=== PATIENT | male | born 1965 | race American Indian/Alaskan Native ===

== ENCOUNTER 2019-10-23 21:05 | Emergency (ER) | payer SELFPAY ==
[2019-10-23 21:09] VITALS: BP 148/101
--- NOTE | 2019-10-23 21:27 | Emergency Department Report ---
ED ENT HPI - General Chief complaint: Sore Throat Stated complaint: SORE THROAT, ELEVATED BLOOD PRESSURE Time Seen by Provider: 10/23/19 21:20 Source: patient Mode of arrival: Ambulatory Limitations: No Limitations - History of Present Illness Initial comments: This is a 53-year-old male nontoxic well in appearance with no signs of distress presents to the ED with complaint of sore throat, fever, chills, and body aches. Patient denies any drooling or hoarseness. Patient denies any other symptoms. Denies any headache, nausea, vomiting, chest pain or SOB. Denies any other complaints. MD complaint: sore throat -: days(s) Location: throat Severity: mild Severity scale (0 -10): 8 Quality: aching Consistency: constant Improves with: none Worsens with: swallowing Associated Symptoms: pain with swallowing, sore throat. denies: fever, cough, gum swelling, toothache, tinnitus, hearing loss, discharge from ear, rhinorrhea - Related Data Previous Rx's Medication Instructions Recorded Last Taken Type Amoxicillin/K Clav Tab [Augmentin 1 tab PO Q12HR #20 tab 10/23/19 Unknown Rx 875 mg] Ibuprofen [Motrin] 800 mg PO Q8HR PRN #20 tablet 10/23/19 Unknown Rx Allergies Allergy/AdvReac Type Severity Reaction Status Date / Time No Known Allergies Allergy Verified 10/23/19 21:09 ED Dental HPI - General Chief complaint: Sore Throat Stated complaint: SORE THROAT, ELEVATED BLOOD PRESSURE Time Seen by Provider: 10/23/19 21:20 Source: patient Mode of arrival: Ambulatory Limitations: No Limitations - Related Data Previous Rx's Medication Instructions Recorded Last Taken Type Amoxicillin/K Clav Tab [Augmentin 1 tab PO Q12HR #20 tab 10/23/19 Unknown Rx 875 mg] Ibuprofen [Motrin] 800 mg PO Q8HR PRN #20 tablet 10/23/19 Unknown Rx Allergies Allergy/AdvReac Type Severity Reaction Status Date / Time No Known Allergies Allergy Verified 10/23/19 21:09 ED Review of Systems ROS: Stated complaint: SORE THROAT, ELEVATED BLOOD PRESSURE Other details as noted in HPI Constitutional: chills, fever Eyes: denies: eye pain, eye discharge, vision change ENT: throat pain. denies: ear pain Respiratory: denies: cough, shortness of breath, wheezing Cardiovascular: denies: chest pain, palpitations Endocrine: no symptoms reported Gastrointestinal: denies: abdominal pain, nausea, diarrhea Genitourinary: denies: urgency, dysuria Musculoskeletal: denies: back pain, joint swelling, arthralgia Skin: denies: rash, lesions Neurological: denies: headache, weakness, paresthesias Psychiatric: denies: anxiety, depression Hematological/Lymphatic: denies: easy bleeding, easy bruising ED Past Medical Hx - Past Medical History Previous Medical History?: No - Surgical History Past Surgical History?: No - Medications Home Medications: Home Medications Medication Instructions Recorded Confirmed Last Taken Type Amoxicillin/K Clav Tab [Augmentin 1 tab PO Q12HR #20 tab 10/23/19 Unknown Rx 875 mg] Ibuprofen [Motrin] 800 mg PO Q8HR PRN #20 tablet 10/23/19 Unknown Rx ED Physical Exam - General Limitations: No Limitations General appearance: alert, in no apparent distress - Head Head exam: Present: atraumatic, normocephalic - Eye Eye exam: Present: normal appearance - Expanded ENT Exam Expanded Ear exam: Present: normal external inspection Mouth exam: Present: normal external inspection, tongue normal. Absent: drooling, trismus, muffled voice Teeth exam: Present: normal inspection Throat exam: Positive: tonsillar erythema, tonsillomegaly (2+ bilateral), other (uvual midline). Negative: tonsillar exudate, R peritonsillar mass, L peritonsillar mass - Neck Neck exam: Present: normal inspection, full ROM. Absent: tenderness, meningismus, lymphadenopathy - Respiratory Respiratory exam: Present: normal lung sounds bilaterally. Absent: respiratory distress, wheezes, rales, rhonchi, stridor, chest wall tenderness, accessory muscle use, decreased breath sounds, prolonged expiratory - Cardiovascular Cardiovascular Exam: Present: regular rate, normal rhythm, normal heart sounds. Absent: irregular rhythm, systolic murmur, diastolic murmur, rubs, gallop - Extremities Exam Extremities exam: Present: full ROM - Back Exam Back exam: Present: full ROM - Neurological Exam Neurological exam: Present: alert, oriented X3, normal gait - Psychiatric Psychiatric exam: Present: normal affect, normal mood - Skin Skin exam: Present: warm, dry, intact, normal color. Absent: rash ED Course Vital Signs 06/28/20 21:08 Temperature 100.7 F H Pulse Rate 98 H Respiratory 18 Rate Blood Pressure 148/101 O2 Sat by Pulse 96 Oximetry - Reevaluation(s) Reevaluation #1: 10/23/19 21:27 Patient is speaking in full sentences with no signs of distress noted. ED Medical Decision Making - Medical Decision Making Patient was instructed to Follow-up with a primary care doctor in 3-5 days or if symptoms worsen and continue return to emergency room as soon as possible. At time of discharge, the patient does not seem toxic or ill in appearance. No acute signs of distress noted. Patient agrees to discharge treatment plan of c are. No further questions noted by the patient. Critical care attestation.: If time is entered above; I have spent that time in minutes in the direct care of this critically ill patient, excluding procedure time. ED Disposition Clinical Impression: Tonsillitis Disposition: [id number] TO HOME OR SELFCARE Is pt being admited?: No Does the pt Need Aspirin: No Condition: Stable Instructions: Pharyngitis (ED) Additional Instructions: Follow-up with a primary care doctor in 3-5 days or if symptoms worsen and continue return to emergency room as soon as possible. Prescriptions: Amoxicillin/K Clav Tab [Augmentin 875 mg] 1 tab PO Q12HR #20 tab Ibuprofen [Motrin] 800 mg PO Q8HR PRN #20 tablet PRN Reason: Fever >101 Referrals: PRIMARY CAREMD [Referring] - 3-5 Days CARMEN KEENE MD [Staff Physician] - 3-5 Days Forms: Work/School Release Form(ED)
== END 2019-10-23 21:59 | disposition home or self-care (01) ==
LOC: ED 21:05
DX: J03.80 Acute tonsillitis due to other specified organisms (principal)
CPT/HCPCS: 99281